=== PATIENT | male | born 1985 | race Native Hawaiian/Other Pacific Islander ===

== ENCOUNTER 2017-07-04 10:31 | Day surgery (SDC) | payer BC ==
[2017-07-01 13:07] VITALS: BMI 22.1
[2017-07-04] MEDS ORDERED: Lactated Ringer's 1,000 ML IV ONE (11:31)
[2017-07-04] MEDS ORDERED: Bupivacaine 0.5% Inj(30mL) ONE (12:21)
[2017-07-04] MEDS ORDERED: Lidocaine 1% Inj (20ml) ONE (12:21)
[2017-07-04] MEDS ORDERED: Lidocaine 1% w Epi 1:100,000 Inj ONE (12:21)
[2017-07-04] MEDS ORDERED: Midazolam 2 MG/2 ML VIAL ONE (13:42)
[2017-07-04] MEDS ORDERED: ePHEDrine 50 mg/ml Inj ONE (13:42)
[2017-07-04] MEDS ORDERED: Propofol 10 mg/ml Inj (20 ML) ONE (13:42)
[2017-07-04] MEDS ORDERED: Succinylcholine 200 mg/10 ml Inj IV ONE (13:43)
[2017-07-04] MEDS ORDERED: Phenylephrine 10 mg/ml Inj ONE (13:43)
[2017-07-04] MEDS ORDERED: Rocuronium 10 mg/ml (5 ml) ONE (13:43)
[2017-07-04] MEDS ORDERED: Bupivacaine 0.5% 50 ML IJ ONE (13:58)
[2017-07-04] MEDS ORDERED: Sevoflurane - Inhalation Anesthetic Liq (250 ml) ONE (14:04)
--- NOTE | 2017-07-04 14:19 | PCM.SURG1 ---
Surgeon's Initial Post Op Note - Surgeon's Notes Surgeon: [employer] Specialist: Yuliya Pre-Operative Diagnosis: Anal warts Operative Findings: Anal warts Post-Operative Diagnosis: Anal warts Operation Performed: Biopsy and fulgaration of anal warts Specimen/Specimens Removed: Anal warts Estimated Blood Loss: EBL {In ML}: 0 Date of Surgery/Procedure: 07/04/17 Time of Surgery/Procedure: 14:18
[2017-07-04 14:34] VITALS: RESP 18
--- NOTE | 2017-07-04 14:35 | CP.SDSHP ---
Same Day Surgery H & P - Allergies Allergies: Allergies No Known Allergies Allergy (Verified 07/01/17 13:07) - Physical Exam Vital Signs: Vital Signs 07/04/17 11:16 Temperature 98 F Pulse Rate 74 Respiratory 20 Rate Blood Pressure 122/64 O2 Sat by Pulse 100 Oximetry Short Stay Discharge - Short Stay Discharge Admitting Diagnosis/Reason for Visit: A63.0 Disposition: HOME/ ROUTINE Referrals: Magno Castro MD [Primary Care Provider] -
[2017-07-04 16:53] VITALS: BP 112/76; PULSE 82; TEMP 97.8; O2SAT 100
--- NOTE | 2017-07-05 12:59 | OP ---
PROCEDURE DATE: 07/04/2017 PREOPERATIVE DIAGNOSIS: Anal warts. POSTOPERATIVE DIAGNOSIS: Anal warts. PROCEDURE: Biopsy and fulguration of anal warts. SURGEON: Sun Bennett MD WOODWORKING MACHINE SETTER: Dr. Balbuena. TYPE OF ANESTHESIA: General. ANESTHESIA ADMINISTERED BY: Dr. Galvez. DESCRIPTION OF PROCEDURE: The patient was anesthetized and placed in a lithotomy position. The anal area was prepped with Betadine and draped in the usual sterile manner. The patient was noted to have approximately 1 cm slightly pedunculated mass of what appeared to be condylomata at the anterior aspect of the anal verge with smaller warts distributed around the anal verge as well. The anal area was infiltrated with 0.5% Marcaine and the larger mass of warts was grasped and elevated and excised. The underlying submucosa was cauterized. The additional larger portions of the warts were also excised and sent for biopsy with the smaller areas being fulgurated with the electrocautery using a needle tip. The rectal examination was performed and no additional abnormalities were identified in the anal canal and a small Vaseline gauze was placed. The patient tolerated the procedure well and transferred to recovery room in stable condition. Blood loss for the procedure was 1 mL. Sun Bennett MD MTDD
== END 2017-07-04 17:00 | disposition home or self-care (01) ==
LOC: H.OPSURG 10:31
PROVIDERS: ATTEND Specialist
DX: A63.0 Anogenital (venereal) warts (principal)
CPT/HCPCS: 46615; 88305; J0330; J2001; J2250; J2370; J2704; J2765; J3010; J7030; J7120